=== PATIENT | female | born 1975 | race Caucasian/White ===

== ENCOUNTER 2017-03-01 05:54 | Day surgery (SDC) | payer OTHER ==
[~2017-03-01] VITALS: Ht 170.2 cm; Wt 91.6 kg
[~2017-03-01 05:54] MED LIST: ASCO100T11 PO; CHOL200047 PO; CYCL5TAB PO; DULO30CA50 PO; ECHI80CA PO; HYDR-3740 PO; IBUP200C PO; Lactated Ringer's 1,000 ML IV SCH; MEDR104D2 SQ; MULT-666 PO
[2017-03-01] MEDS ORDERED: fentaNYL-PF 50 mCg/mL 2 mL Inj ONE (05:55)
[2017-03-01] MEDS ORDERED: Ketamine 10 mg/mL 20 mL Inj ONE (05:55)
[2017-03-01] MEDS ORDERED: Propofol 10,000 mCg/mL 20 mL Inj ONE (05:55)
[2017-03-01] MEDS ORDERED: Clindamycin 900 mg/50 mL D5W IV SCH (06:00)
[2017-03-01 06:41] VITALS: BP 115/87; PULSE 75; RESP 17; O2SAT 98
[2017-03-01] MEDS ORDERED: Lactated Ringer's 1,000 ML IV ONE (06:55)
--- NOTE | 2017-03-01 07:22 | PCM.HPANE ---
Patient Data Date of Service: March 01, 2017 Surgeon Admitting Provider: Attending Provider:Nba Dacosta MD Primary Care Physician:Elif Goetz MD Other Provider:Natalia Simeon Anesthesia Reason for Visit Right Hand Palmar Nodule Ht/WT & BMI Height (Feet): 5 Height (Inches): 7.00 Weight (Kilograms): 91.620 Body Mass Index 31.00 Allergies Coded Allergies: codeine (Verified Allergy, Unknown, 05/09/16) naproxen (Verified Allergy, Unknown, GI upset, 05/09/16) Past Anesthesia History Anesthesia History: Denies:: Abnormal Airway Diabetes History Hx Diabetes?: No MRSA MRSA: No Medications Home Meds Incl Beta Hailee: No Reported Medications Duloxetine 30 Mg Capsule.dr30 Mg PO DAILY Ref 0 02/27/17 Multivitamin (Once Daily)1 Each Tablet1 Each PO DAILY 02/27/17 Cyclobenzaprine 5 Mg Tablet5 Mg PO TID PRN Spasm 02/27/17 Cholecalciferol (Vitamin D3) (Vitamin D3)2,000 Unit Capsule2,000 Unit PO DAILY 04/27/16 Ascorbic Acid (Vitamin C)100 Mg TabletUnknown Dose PO 04/27/16 Ibuprofen 200 Mg [id number] Mg PO QID PRN For Pain Ref 0 04/27/16 Echinacea Purpurea Root (Echinacea)80 Mg CapsuleUnknown Dose PO 04/27/16 Medroxyprogesterone Acetate (Depo-Subq Provera 104)104 Mg/0.65 Ml Bsmvvrr440 Mg SQ [id number] 12/20/15 Hydrocodone-Acetaminophen 10-325 mg 1 Tab Tablet1-2 Tab PO BID PRN For Pain Ref 0 12/22/14 Discontinued Reported Medications Gabapentin 300 Mg [id number] Mg PO BID Ref 0 12/20/15 Discontinued Scripts Amoxicillin/Clav K 875-125 mg (Augmentin 875-125 mg)1 Each Tablet1 Tablet PO BID #20 TABLET Prov:Reilly Whaley MD 05/09/16 History History of ENT Problems?: No HEENT History: Denies:: Abnormal Airway Denture Type: None Teeth Condition: Within Normal Limits Hx of Heart Problems?: Yes Cardiovascular History: Denies:: Coronary Artery Disease Hx of Respiratory Problem?: No Respiratory History: Denies:: COPD Hx Neurologic Problems?: No Hx of GI Problems?: No Hx of Problems?: No Female Hx: Denies:: Currently (neg) Skin History: Denies:: History Skin Disorders? Pressure Ulcers Hx Musculoskeletal Problems?: Yes Musculoskeletal History: Positive for:: Back Injury (low back pain) Musculoskeletal Trauma (rib fx x2) Hx of Psycho/Social Problems?: No Hx Surgeries?: Yes (r hand) Hx Any Other Health Problems?: No Other History: Denies:: Cancer Hx Diabetes: No Other Pertinent History: ganglion cyst of flexor tendon sheath of finger of right hand Hx Alcohol Use: NoHx Substance Use: Yes (marijuana every night for back pain) Smoking Status: Current Every Day Smoker Have You Smoked inLast 12 mo: Yes Stop/Bang S-Snoring: Do You Snore Loudly: No T-Tired: feel tired, fatigued: No O-Obsered: Observed not breath: No P-Blood Pressure: treated: No B- Body Mass Index > 35 kg/m2: No A- Age over 50: No N- Neck Large Circumference: No G- Gender Male: No AMADEO Total Score: 0 Risk Assessment Category Category 1A: Patient has history of documented sleep apnea, and HAS NOT received any narcotic, sedative or anesthesia administration during this stay. Category 1B: Patient has history of documented sleep apnea, and HAS received any narcotic , sedative or anesthesia administration during this stay Category 2: Patient has SUSPECTED Obstructive Sleep Apnea, and HAS received any narcotic , sedative or anesthesia administration during this stay. Category 3: Patient has SUSPECTED Obstructive Sleep Apnea and HAS NOT received narcotic, sedative or anesthesia administration during this stay. Category 4: Outpatient in Procedural Areas with known sleep apnea or who screen positive for High Risk via the STOP/BANG questionnaire. Exam Exam Vital Signs Vital Signs Date Time Temp Pulse Resp B/P Pulse Ox O2 Delivery O2 Flow Rate FiO2 03/01/17 06:41 36.4 75 17 115/87 98 Room Air General Appearance: Alert, Oriented X3, Cooperative HEENT/AIRWAY: MP 2 Lungs: Clear to Auscultation Heart: Regular Rate/Rhythm Meds/Labs/Diagnostics Admission Meds Current Medications Lactated Ringer's (Lr) 1,000 ml @ ud STK-MED ONCE IV Last administered on 03/01t 06:55; Start 03/01/17 at 06:55; Stop 03/01/17 at 06:56; Status DC Plan Impression Patient chart reviewed, patient interviewed and anesthestic plan with risks, benefits, and alternatives discussed, and informed consent obtained. ASA Physical Status: ASA2 Mod Systemic Disease Anesthetic Plan: MAC Bene/Risks/Altern/Consents: Yes HP Complete Prior to Induction: Yes Duane Cleaning MD March 01, 2017 07:22
[2017-03-01] MEDS ORDERED: Bupivacaine-MPF 0.25% 30 mL Inj INFILTRATE ONE (07:30)
[2017-03-01] MEDS ORDERED: Lactated Ringer's 1,000 ML IV SCH (07:36)
[2017-03-01] MEDS ORDERED: Lactated Ringer's 500 ML IV PRN (07:36)
[2017-03-01] MEDS ORDERED: Ondansetron 2 mg/mL 2 mL Inj IVPUSH PRN (07:40)
[2017-03-01] MEDS ORDERED: MetoCLOpramide 5 mg/mL 2 mL Inj IVPUSH PRN (07:40)
[2017-03-01] MEDS ORDERED: HYDROmorphone 1 mg/mL Inj IVPUSH PRN (07:40)
[2017-03-01] MEDS ORDERED: Phenylephrine 10,000 mCg/mL Inj IVPUSH PRN (07:40)
[2017-03-01] MEDS ORDERED: fentaNYL-PF 50 mCg/mL 2 mL Inj IVPUSH PRN (07:40)
[2017-03-01] MEDS ORDERED: Dexamethasone 4 mg/mL Inj IVPUSH PRN (07:40)
[2017-03-01] MEDS ORDERED: EPHEDrine Sulfate 50 mg/mL Inj IVPUSH PRN (07:40)
[2017-03-01] MEDS ORDERED: Labetalol 5 mg/mL 4 mL Inj IV PRN (07:40)
[2017-03-01 07:52] VITALS: BP 110/76; PULSE 73; RESP 10; O2SAT 94
[2017-03-01] MEDS ORDERED: Bupivacaine-MPF 0.5% 30 mL Inj INFILTRATE ONE (07:58)
--- NOTE | 2017-03-01 08:05 | PCM.ANEP1 ---
Post Anesthesia PACU Phase 1 Assessment Date of Service: March 01, 2017 Vital Signs Vital Signs Date Time Temp Pulse Resp B/P Pulse Ox O2 Delivery O2 Flow Rate FiO2 03/01/17 07:52 36 73 10 110/76 94 Room Air 03/01/17 06:41 36.4 75 17 115/87 98 Room Air Anesthetic Administered: MAC Level of Alertness: Awake, talking Pain: No Nausea or Vomiting: No CV Function & Hydration Stable: Yes Airway Device: Oxygen Delivery: Simple Mask Lungs: Clear to Auscultation PACU Phase 2 Assessment Complications: No Patient Instructions Provided: Yes Duane Cleaning MD March 01, 2017 08:05
[2017-03-01 08:52] VITALS: BP 105/74; PULSE 70; RESP 17; O2SAT 96
--- NOTE | 2017-03-02 13:49 | PATH ---
SURGICAL PATHOLOGY Attending Physician:Nba Dacosta CASE STATUS: Signed Out PATIENT NAME: HERMELINDO ORTIZ PID: [id number] : 1975 DATE COLLECTED:03/01/2017 15:19 SPECIMEN: Mass, NOS CLINICAL HISTORY: RIGHT PALMAR MASS 1. RIGHT PALMAR NODULE FINAL DIAGNOSIS: 1.RIGHT PALMAR NODULE: EPIDERMAL CYST, NEGATIVE FOR ATYPIA. ICD10 L72.0 GROSS DESCRIPTION: The specimen is received in one formalin filled container labeled with the patient's name, sublabeled "right palmar nodule" and consists of a chandler-tejeda ovoid striated portion of skin and tissue which measures 0.9 x 0.4 x 0.5 CM. The specimen is inked blue. The specimen is trisected and entirely submitted in one cassette. 03/01/2017 [facility] MICRO DESCRIPTION: See diagnosis. ICD-9 CODES: CPT CODES: 1: 82515 Electronically Signed Out Teddy Real MD [facility] [address], [place] [address] Technical component performed at [facility], [facility] [address], [place], [address]
--- NOTE | 2017-03-02 22:35 | OP ---
[address] [address] OPERATIVE REPORT PATIENT: HERMELINDO ORTIZ : 1975 MR#: [id number] ADMIT: 03/01/2017 JOB ID: [id number] DATE OF SURGERY: 03/01/2017 PREOPERATIVE DIAGNOSIS(ES): Right hand palmar nodule. POSTOPERATIVE DIAGNOSIS(ES): Right hand palmar nodule. PROCEDURE: Excision of right hand palmar nodule, subcutaneous, superficial, 1.3 cm. SURGEON: Nba Dacosta MD. SUPERINTENDENT REFUSE DISPOSAL: None. ANESTHESIA: MAC with local. COMPLICATIONS: None apparent. SPECIMEN: Right palmar nodule to Pathology. INDICATIONS FOR PROCEDURE: This is a 42-year-old female patient with a slowly enlarging palmar nodule on the right hand. At this point, excision is indicated for tissue diagnosis and for symptom relief. PROCEDURES AND FINDINGS: The patient was identified in the preoperative area. Surgical site was marked. The patient was then taken back to the operating room and placed supine on the operating table. Appropriate time-outs were taken. MAC was induced smoothly. The patient was then prepped and draped in the usual sterile manner. Local anesthesia was then infiltrated to the surgical site consisting of 1% lidocaine and 0.25% Marcaine. The patient's right upper extremity was then exsanguinated and tourniquet inflated to 250 mmHg. It was noted that patient has a 1.2-1.3 cm subcutaneous nodule over the ring finger ray near the distal palmar crease. It is quite closely associated with the skin. An ellipse was then designed to encompass the central portion of this nodule and to lie along the axis of the distal palmar crease. The incision was then made with a #15 blade just through the skin. I then performed blunt and sharp dissection to elevate the skin off of the rest of the nodule. It was noted that it appears to be an inclusion cyst; however, there is some fatty tissue around this nodule that is quite adherent. I then again performed sharp dissection to dissect the nodule off of the surrounding soft tissue with a small amount of adipose tissue attaching to the nodule. The nodule was then peeled off of the superficial palmar fascia in this area and passed off to pathology as a specimen. Tourniquet was released and hemostasis was obtained with electrocautery. The incision was then reapproximated using several 4-0 nylon horizontal mattress sutures. The patient tolerated the procedure well. Needle count, sponge count, and instrument counts were correct at the end of the procedure. The patient was transported to recovery in stable condition.
== END 2017-03-01 23:59 | disposition home or self-care (01) ==
LOC: SAS 05:54
PROVIDERS: ATTEND Plastic Surgery
DX: L72.0 Epidermal cyst (principal); E78.00 Pure hypercholesterolemia, unspecified; M47.896 Other spondylosis, lumbar region; F12.90 Cannabis use, unspecified, uncomplicated; F17.210 Nicotine dependence, cigarettes, uncomplicated
CPT/HCPCS: 11422; J2250; J3010; J7120